=== PATIENT | female | born 1960 | race African-American/Black ===

== ENCOUNTER 2017-10-13 18:40 | Emergency (ER) | payer OTHER ==
[~2017-10-13] VITALS: Ht 167.6 cm; Wt 54.4 kg
[2017-10-13 18:45] VITALS: BP 126/76
[2017-10-13] MEDS ORDERED: MAPAP80 MG PO (18:46)
[2017-10-13] MEDS ORDERED: AMLODIPINE BES2.5 MG ORAL (18:46)
[2017-10-13] MEDS ORDERED: DOK100 M1 PO (18:47)
[2017-10-13] MEDS ORDERED: Vancomycin 1 GM in NS 275 ML IV ONE (19:00)
[2017-10-13] MEDS ORDERED: Solu-MEDROL 125mg Inj IVP ONE (19:00)
[2017-10-13] MEDS ORDERED: NS 250 ML IVPB ONE (19:00)
[2017-10-13] MEDS ORDERED: Albuterol/Ipratropium 3ml neb HHN ONE (19:15)
[2017-10-13] MEDS: Ampicillin/Sulbactam Sod 3 GM in NS 110 ML IV SCH (19:29)
[2017-10-13 19:44] LABS: HEMATOCRIT 24.7 % (37.0-47.0); HEMOGLOBIN 7.6 G/DL (12.0-16.0); MEAN CORPUSCULAR VOLUME 76 FL (80-99); PLATELET COUNT 621 K/UL (150-450); RED BLOOD COUNT 3.26 M/UL (4.20-5.40); RED CELL DISTRIBUTION WIDTH 13.4 % (11.6-14.8); WHITE BLOOD COUNT 9.1 K/UL (4.8-10.8)
[2017-10-13 20:05] LABS: ANION GAP 11 mmol/L (5-15); BLOOD UREA NITROGEN 13 mg/dL (7-18); CALCIUM 8.8 MG/DL (8.5-10.1); CARBON DIOXIDE 24 MMOL/L (21-32); CHLORIDE 103 MMOL/L (98-107); CREATININE 0.7 MG/DL (0.55-1.30); POTASSIUM 3.8 MMOL/L (3.5-5.1); SODIUM 138 MMOL/L (136-145)
[2017-10-13 20:19] LABS: ALANINE AMINOTRANSFERASE 29 U/L (12-78); ALBUMIN 2.7 G/DL (3.4-5.0); ALBUMIN/GLOBULIN RATIO 0.6 (1.0-2.7); ALKALINE PHOSPHATASE 87 U/L (46-116); ASPARTATE AMINO TRANSFERASE 41 U/L (15-37); BILIRUBIN,TOTAL 0.2 MG/DL (0.2-1.0); CKMB 1.5 NG/ML (0.0-3.6); CREATINE KINASE 124 U/L (26-308)
[2017-10-13 20:25] LABS: INR 8.5 (0.9-1.1)
[2017-10-13 20:39] VITALS: BP 130/75
[2017-10-13] MEDS ORDERED: WARFARIN SODIUM5 MG ORAL (20:44)
[2017-10-13] MEDS ORDERED: TYLENOL EXTRA500 MG ORAL (20:44)
[2017-10-13] MEDS ORDERED: ATROVENT HFA12.9 GM IH (20:44)
[2017-10-13] MEDS ORDERED: AMLODIPINE BESYL5 MG ORAL (20:44)
[2017-10-13] MEDS ORDERED: VENTOLIN HFA18 GM INH (20:44)
[2017-10-13] MEDS ORDERED: MYAMBUTOL400 MG ORAL (20:44)
[2017-10-13] MEDS ORDERED: ZITHROMAX250 MG ORAL (20:44)
[2017-10-13 20:54] LABS: APPEARANCE,URINE CLEAR; BILIRUBIN, URINE NEGATIVE (NEGATIVE); COLOR,URINE PALE YELLOW; GLUCOSE, URINE (UA) NEGATIVE (NEGATIVE); KETONES,URINE NEGATIVE (NEGATIVE); LEUKOCYTE ESTERASE ,URINE 2+ (NEGATIVE); NITRITE,URINE NEGATIVE (NEGATIVE); PH,URINE 7 (4.5-8.0); PROTEIN,URINE NEGATIVE (NEGATIVE); UROBILINOGEN,URINE NORMAL MG/DL (0.0-1.0)
[2017-10-13] MEDS ORDERED: Phytonadione 10 mg/mL 1ml amp SUBQ ONE (21:00)
--- NOTE | 2017-10-13 21:03 | Emergency Room Report ---
History of Present Illness General Chief Complaint: Upper Respiratory Illness Source: Patient, EMS Present Illness HPI Patient is a 57-year-old female brought in by EMS after increased the hemoptysis and difficulty breathing. Patient prior history of COPD and had been taking albuterol as well as Atrovent. The patient was noted to have prior history of smoking. Patient had been having generalized headache as well as the increased difficulty breathing. Patient only uses oxygen. Patient had recently been diagnosed with a partially collapsed lung at [facility] 3 months ago. The patient was noted to have had been started on anticoagulation but does not recall the names. Allergies: Coded Allergies: No Known Allergies (Unverified , 10/13/17) Patient History Past Medical History: see triage record Reviewed Nursing Documentation: PMH: Agreed; PSxH: Agreed Nursing Documentation-PMH Past Medical History: No History, Except For Hx Hypertension: Yes Hx Asthma: Yes Hx COPD: Yes - bronchitis, Review of Systems All Other Systems: limited - by mental status Physical Exam Vital Signs Date Time Temp Pulse Resp B/P (MAP) Pulse Ox O2 Delivery O2 Flow Rate FiO2 10/13/17 18:41 98.7 100 24 139/88 100 Nasal Cannula 4.0 98.8 10/13/17 19:45 28 Sp02 EP Interpretation: reviewed, normal General Appearance: normal inspection, GCS 15 Head: atraumatic ENT: normal ENT inspection, hearing grossly normal, normal voice Neck: normal inspection, full range of motion, supple, no bony tend Respiratory: normal inspection, no retraction, wheezing Cardiovascular #1: regular rate, rhythm, no edema Gastrointestinal: normal inspection, normal bowel sounds, non tender, soft, no guarding, no hernia Genitourinary: no CVA tenderness Musculoskeletal: normal inspection, back normal, normal range of motion Neurologic: normal inspection, alert, oriented x3, responsive, in room dining server III-XII nml as tested, speech normal Psychiatric: normal inspection, judgement/insight normal, mood/affect normal Skin: normal inspection, normal color, no rash Medical Decision Making Diagnostic Impression: Primary Impression: Cavitary lung disease Additional Impressions: Warfarin-induced coagulopathy Anemia COPD (chronic obstructive pulmonary disease) ER Course Patient presented for shortness of breath. Differential included but was not limited to anemia, pneumonia, pneumothorax, myocardial infarction, pericardial effusion, congestive heart failure, acidosis. Because of complexity of patient' s case laboratory testing and imaging studies were ordered.The chest x-ray one view read by radiology showed possible hydropneumothorax to the right lung with left sided infiltrate. The trachea is noted to be midline.The patient was given breathing treatment for shortness of breath. Patient started on IV antibiotics. The patient was noted to have some trace hemoptysis. The patient is anticoagulated with Coumadin. INR was noted to be markedly elevated. Patient was given vitamin K.The patient was initially discussed with Dr. Dallin Fulton for possible transfer to [facility] however patient appeared to be unstable due to possible pneumothorax. The CT was subsequently ordered which showed evidence of chronic disease to the right lung with complete absence of right lung and large cavitary lesion with small amount of residual fluid. The left lung was noted to have multiple cavitary lesions and infiltrate. Given the patient's pulmonary condition patient appears to require higher level of care Labs Test 10/13/17 19:24 10/13/17 19:50 White Blood Count 9.1 K/UL (4.8-10.8) Red Blood Count 3.26 M/UL (4.20-5.40) Hemoglobin 7.6 G/DL (12.0-16.0) Hematocrit 24.7 % (37.0-47.0) Mean Corpuscular Volume 76 FL (80-99) Mean Corpuscular Hemoglobin 23.4 PG (27.0-31.0) Mean Corpuscular Hemoglobin Concent 30.9 G/DL (32.0-36.0) Red Cell Distribution Width 13.4 % (11.6-14.8) Platelet Count 621 K/UL (150-450) Mean Platelet Volume 5.0 FL (6.5-10.1) Neutrophils (%) (Auto) % (45.0-75.0) Lymphocytes (%) (Auto) % (20.0-45.0) Monocytes (%) (Auto) % (1.0-10.0) Eosinophils (%) (Auto) % (0.0-3.0) Basophils (%) (Auto) % (0.0-2.0) Differential Total Cells Counted 100 Neutrophils % (Manual) 63 % (45-75) Lymphocytes % (Manual) 24 % (20-45) Monocytes % (Manual) 9 % (1-10) Eosinophils % (Manual) 4 % (0-3) Basophils % (Manual) 0 % (0-2) Band Neutrophils 0 % (0-8) Platelet Estimate Increased Platelet Morphology Normal Hypochromasia 2+ Anisocytosis 2+ Microcytosis 2+ Prothrombin Time 91.0 SEC (9.30-11.50) Prothromb Time International Ratio 8.5 (0.9-1.1) Activated Partial Thromboplast Time 53 SEC (23-33) Sodium Level 138 MMOL/L (136-145) Potassium Level 3.8 MMOL/L (3.5-5.1) Chloride Level 103 MMOL/L (98-107) Carbon Dioxide Level 24 MMOL/L (21-32) Anion Gap 11 mmol/L (5-15) Blood Urea Nitrogen 13 mg/dL (7-18) Creatinine 0.7 MG/DL (0.55-1.30) Estimat Glomerular Filtration Rate > 60 mL/min (>60) Glucose Level 91 MG/DL (74-106) Lactic Acid Level 1.00 mmol/L (0.4-2.0) Calcium Level 8.8 MG/DL (8.5-10.1) Magnesium Level 1.5 MG/DL (1.8-2.4) Total Bilirubin 0.2 MG/DL (0.2-1.0) Aspartate Amino Transf (AST/SGOT) 41 U/L (15-37) Alanine Aminotransferase (ALT/SGPT) 29 U/L (12-78) Alkaline Phosphatase 87 U/L (46-116) Total Creatine Kinase 124 U/L (26-308) Creatine Kinase MB 1.5 NG/ML (0.0-3.6) Creatine Kinase MB Relative Index 1.2 Troponin I 0.000 ng/mL (0.000-0.056) Pro-B-Type Natriuretic Peptide 643 pg/mL (0-125) Total Protein 7.2 G/DL (6.4-8.2) Albumin 2.7 G/DL (3.4-5.0) Globulin 4.5 g/dL Albumin/Globulin Ratio 0.6 (1.0-2.7) Urine Color Pale yellow Urine Appearance Clear Urine pH 7 (4.5-8.0) Urine Specific [place] 1.005 (1.005-1.035) Urine Protein Negative (NEGATIVE) Urine Glucose (UA) Negative (NEGATIVE) Urine Ketones Negative (NEGATIVE) Urine Occult Blood Negative (NEGATIVE) Urine Nitrite Negative (NEGATIVE) Urine Bilirubin Negative (NEGATIVE) Urine Urobilinogen Normal MG/DL (0.0-1.0) Urine Leukocyte Esterase 2+ (NEGATIVE) Urine RBC 0-2 /HPF (0 - 2) Urine WBC 2-4 /HPF (0 - 2) Urine Squamous Epithelial Cells Few /LPF (NONE/OCC) Urine Bacteria Few /HPF (NONE) EKG Diagnostic Results Rate: normal Rhythm: NSR Rhythm Strip Diag. Results EP Interpretation: yes Rhythm: NSR, no PVC's, no ectopy Last Vital Signs Date Time Temp Pulse Resp B/P (MAP) Pulse Ox O2 Delivery O2 Flow Rate FiO2 10/13/17 20:39 98.2 90 30 130/75 100 Nasal Cannula 3.0 98.2 10/13/17 20:03 28 Status: unchanged Disposition: XFER SHT-TRM HOSP Condition: Serious Referrals: PREFERRED [facility],REFERRING (PCP) Aydin Castillo MD Oct 13, 2017 21:03
--- NOTE | 2017-10-13 21:33 | Diagnostic Imaging Report ---
EXAM: XR Chest, 1 View CLINICAL HISTORY: SOB TECHNIQUE: Frontal view of the chest. COMPARISON: No relevant prior studies available. FINDINGS: Lungs: Diffuse airspace opacity seen at the left lung which may be inflammatory or infectious. Pleural space: Presumed large right hydropneumothorax with presumed adjacent atelectasis. Heart: Unremarkable. No cardiomegaly. Mediastinum: Shift of the mediastinum to the right. Tortuosity of the thoracic aorta. Bones/joints: Unremarkable. IMPRESSION: 1. Presumed large right hydropneumothorax with presumed adjacent atelectasis. Consider CT of the chest if no prior imaging available. 2. Diffuse airspace opacity seen at the left lung which may be inflammatory or infectious.
[2017-10-13] MEDS ORDERED: Morphine Sulfate 2mg/ml Inj IVP ONE (22:15)
[2017-10-13 22:45] VITALS: BP 127/70
[2017-10-13 23:15] VITALS: BP 122/72
--- NOTE | 2017-10-13 23:53 | Diagnostic Imaging Report ---
EXAM: CT Chest Without Intravenous Contrast CLINICAL HISTORY: PAIN TECHNIQUE: Axial computed tomography images of the chest without intravenous contrast. CTDI is 0.15, 12 mGy and DLP is 400 mGy-cm. One or more of the following dose reduction techniques were used: automated exposure control, adjustment of the mA and/or kV according to patient size, use of iterative reconstruction technique. COMPARISON: No relevant prior studies available. FINDINGS: Lungs: Larger area of cavitation within the right hemithorax with small air-fluid level. Irregular soft tissue thickening along the entire pleura and subpleural thorax. The cavitary component appears to communicate with the bronchi. No residual aerated parenchyma seen. The left lung demonstrates marked centrilobular and paraseptal emphysema with patchy areas of consolidation some which demonstrate cavitation. Pleural space: Unremarkable. No pneumothorax. No significant effusion. Heart: Trace pericardial effusion. Mediastinum: Moderate shift of the mediastinum to the right. Bones/joints: No acute osseous abnormality. No dislocation. Soft tissues: Unremarkable. Vasculature: Unremarkable. No thoracic aortic aneurysm. Lymph nodes: No significant adenopathy. IMPRESSION: Larger area of cavitation within the right hemithorax with small air- fluid level. Irregular soft tissue thickening along the entire pleura and subpleural thorax. The cavitary component appears to communicate with the bronchi. No residual aerated parenchyma seen. The left lung demonstrates marked centrilobular and paraseptal emphysema with patchy areas of consolidation some which demonstrate cavitation. Findings are concerning for possible infectious process such as tuberculosis or neoplasm. 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 [employer] 10/13/17 23:46 Call Doctor Regarding Above results, called Dr. Castillo on 10/13 23:46 (-07:00)
[2017-10-14] MEDS: Ampicillin/Sulbactam Sod 3 GM in NS 110 ML IV SCH ×2 (01:00→07:00)
[2017-10-14] MEDS ORDERED: Morphine Sulfate 2mg/ml Inj IVP ONE (01:30)
[2017-10-14] MEDS ORDERED: Morphine Sulfate 2mg/ml Inj ONE (01:36)
[2017-10-14 01:45] VITALS: BP 117/69
[2017-10-14 03:41] VITALS: BP 119/69
[2017-10-14 05:41] VITALS: BP 120/79
[2017-10-14 07:26] VITALS: BP 120/79
--- NOTE | 2017-10-15 10:12 | Cardiology Report ---
APPROVED REPORT EKG Measurement Heart [id number] Normal sinus rhythm Normal ECG
== END 2017-10-14 07:27 | disposition short-term general hospital (02) ==
LOC: EDBD 18:40 → EMR 19:00 → EDBEDREQ 21:23 → 2E 21:34 → UNDOADMIN 21:34 → EDBEDREQ 22:50 → EMR 10-14 07:27
DX: J98.4 Other disorders of lung (principal); R79.1 Abnormal coagulation profile; Z79.01 Long term (current) use of anticoagulants; D64.9 Anemia, unspecified; J44.9 Chronic obstructive pulmonary disease, unspecified; I10 Essential (primary) hypertension
CPT/HCPCS: 36415; 71045; 71250; 80053; 81003; 82550; 82553; 83605; 83735; 83880; 84484; 85007; 85025; 85610; 85730; 87040; 93005; 94640; 94664; 96360; 96361; 96374; 96375; 99284; J0295; J2270; J2930; J3370; J3430; J7050; J7620